=== PATIENT | female | born 1985 | race Caucasian/White ===

== ENCOUNTER 2023-04-22 19:48 | Emergency (ER) | payer SELFPAY ==
[~2023-04-22] VITALS: Ht 160 cm; Wt 75.0 kg
[2023-04-22] MEDS ORDERED: HYDRALAZINE HYD25 MG PO (20:49)
[2023-04-22] MEDS ORDERED: FUROSEMIDE20 MG PO (20:49)
[2023-04-22] MEDS ORDERED: NIFEDIPINE90 M1 PO (20:50)
[2023-04-22] MEDS ORDERED: NORMODYNE/TRAN100 MG PO (20:50)
[2023-04-22 23:46] VITALS: BP 141/89
== END 2023-04-22 23:54 | disposition home or self-care (01) | DRG 103 ==
LOC: ED 19:48
DX: R51.9 Headache, unspecified (principal); I12.9 Hypertensive chronic kidney disease with stage 1 through stage 4 chronic kidney disease, or unspecified chronic kidney disease; N18.9 Chronic kidney disease, unspecified; Z88.8 Allergy status to other drugs, medicaments and biological substances

== ENCOUNTER 2023-05-27 08:38 | Observation (INO) | payer SELFPAY ==
[2023-05-27] VITALS (19 sets, daily range): BP systolic 154–181; BP diastolic 92–126
[~2023-05-27] VITALS: Ht 160 cm; Wt 60.0 kg
[~2023-05-27 08:38] MED LIST: FUROSEMIDE20 MG PO; HYDRALAZINE HYD25 MG PO; NIFEDIPINE90 M1 PO; NORMODYNE/TRAN100 MG PO
[2023-05-27 09:04] LABS: BASO% 1.4 % (0-3); EOS% 5.6 % (0-8); HEMATOCRIT 26.9 % (37.0-47.0); HEMOGLOBIN 8.5 g/dl (12.0-16.0); IMMATURE GRANULOCYTES 0.5 % (0.0-5.0); LYMPH% 25.7 % (15-41); MEAN CELL VOLUME 89.4 fL CALC (80.0-100.0); MEAN CORPUSCULAR HGB 28.2 pG CALC (26.0-32.0); MEAN CORPUSCULAR HGB CONC 31.6 g/dL CAL (32.0-36.0); NEUT# 3.08 thou/uL (2.00-7.15); NEUT% 55.8 % (42-76); RED BLOOD COUNT 3.01 mill/uL (4.20-5.60)
[2023-05-27 09:48] LABS: ALBUMIN 3.9 g/dL (3.2-5.0); BILIRUBIN, TOTAL 0.5 mg/dL (0.02-1.3); TOTAL PROTEIN 7.2 g/dL (6.3-8.2)
[2023-05-27 09:50] LABS: CREATININE 7.3 mg/dL (0.5-1.0)
[2023-05-27] MEDS ORDERED: NORMODYNE/TRAN100 MG PO (09:56)
[2023-05-27] MEDS ORDERED: CLARITHROMYCIN500 MG PO (10:05)
[2023-05-27] MEDS ORDERED: HYDROXYZ HCL25 MG PO (10:08)
[2023-05-27] MEDS ORDERED: COZAAR50 MG PO (10:09)
[2023-05-27] MEDS ORDERED: METRONIDAZOLE500 MG PO (10:11)
[2023-05-27] MEDS ORDERED: OLANZAPINE10 MG PO (10:13)
[2023-05-27] MEDS ORDERED: ROPINIROLE0.5 MG PO (10:16)
[2023-05-27] MEDS ORDERED: RENVELA800 MG PO (10:18)
[2023-05-27] MEDS ORDERED: TRAMADOL HCL50 MG PO (10:21)
[2023-05-27] MEDS ORDERED: NIFEDIPINE60 M1 PO (10:28)
== END 2023-05-27 17:00 | disposition left against medical advice (07) | DRG 682 ==
LOC: ED 08:38 → ED-I 10:00 → ED 10:34 → MS2 10:35
PROVIDERS: Family Medicine; ADMIT Student in an Organized Health Care Education/Training Program; ATTEND Student in an Organized Health Care Education/Training Program
PROC: 5A1D70Z Performance of Urinary Filtration, Intermittent, Less than 6 Hours Per Day (ICD-10-PCS; principal; 2023-05-27)
DX: I12.0 Hypertensive chronic kidney disease with stage 5 chronic kidney disease or end stage renal disease (principal); N18.6 End stage renal disease; Z99.2 Dependence on renal dialysis; F17.200 Nicotine dependence, unspecified, uncomplicated; I25.2 Old myocardial infarction
CPT/HCPCS: G0378